=== PATIENT | male | born 1945 | race Caucasian/White ===

== ENCOUNTER 2017-10-20 09:55 | Day surgery (SDC) | payer MEDICARE, OTHER ==
[~2017-10-20 09:55] MED LIST: ACET650SUP PR; BENAML10/2 PO; Benazepril HCl40 MG PO; Cialis5 MG; DESO.25TC TOP; GLUCOSAMINE CH1 EAC1 PO; HYDR1TAB94 PO; LISI20 PO; MED FOR CHOLESTEROL; MED FOR GERD; METO25 PO; METO25ER PO; NAPR250 PO; OMEP20ER PO; PRAV20 PO; Pravachol80 MG PO; SIMV40 PO; TADA10TA; WARF5 PO; [UNRECOGNIZED DRUG - OTHER]; [UNRECOGNIZED DRUG - REMARK]
== END 2017-10-20 22:58 | disposition home or self-care (01) ==
LOC: RAD 09:55
PROVIDERS: Radiology Diagnostic Radiology
PROC: BR29YZZ Computerized Tomography (CT Scan) of Lumbar Spine using Other Contrast (ICD-10-PCS; principal; 2017-10-20 12:30)
DX: M21.372 Foot drop, left foot (principal); M51.36 Other intervertebral disc degeneration, lumbar region; E11.9 Type 2 diabetes mellitus without complications; I10 Essential (primary) hypertension; E78.5 Hyperlipidemia, unspecified; Z87.891 Personal history of nicotine dependence
CPT/HCPCS: 62304; 72132; Q9966

== ENCOUNTER 2018-02-27 10:25 | Emergency (ER) | payer MEDICARE, OTHER ==
[~2018-02-27] VITALS: Ht 177.8 cm; Wt 80.7 kg
[2018-02-27 11:01] LABS: BASOPHILS ABSOLUTE AUTO 0.04 K/mm3 (0.00-0.23); BASOPHILS PERCENT AUTO 1 % (0-2); EOSINOPHILS ABSOLUTE AUTO 0.16 K/mm3 (0.00-0.68); EOSINOPHILS PERCENT AUTO 3 % (0-6); Hematocrit 45.8 % (37.0-53.0); Hemoglobin 16.3 g/dL (13.5-17.5); IMMATURE GRAN ABSOLUTE AUTO 0.01 K/mm3 (0.00-0.10); IMMATURE GRAN PERCENT AUTO 0 % (0-1); LYMPHOCYTES ABSOLUTE AUTO 0.95 K/mm3 (0.84-5.20); LYMPHOCYTES PERCENT AUTO 18 % (21-46); MONOCYTES ABSOLUTE AUTO 0.71 K/mm3 (0.16-1.47); MONOCYTES PERCENT AUTO 14 % (4-13); Mean Corpuscular HGB Conc 35.6 g/dL (31.5-36.5); Mean Corpuscular Volume 101 fL (80-100); Mean Platelet Volume 11.3 fL (9.1-12.4); NEUTROPHILS ABSOLUTE AUTO 3.29 K/mm3 (1.96-9.15); NEUTROPHILS PERCENT AUTO 64 % (41-73); Platelet Count 124 K/mm3 (150-400); RDW Coefficient Variation 12.4 % (11.7-14.2); RDW Standard Deviation 46.5 fL (35.1-46.3); Red Blood Cell Count 4.53 M/mm3 (4.30-5.90); White Blood Cell Count 5.16 K/mm3 (4.00-11.30)
[2018-02-27 11:16] LABS: International Normalized Ratio 1.88; Magnesium, Blood 2.3 mg/dL (1.6-2.4); Prothrombin Time Results 18.7 Sec (9.7-11.5); Troponin I <0.015 ng/mL (0.000-0.040)
[2018-02-27 11:17] LABS: Alanine Aminotransfer (ALT/SGP 38 U/L (12-78); Albumin, Blood 3.7 g/dL (3.4-5.0); Alk Phos 57 U/L (50-136); Anion Gap 7 mmol/L (6-16); Aspartate Aminotrans (AST/SGOT 29 U/L (12-37); Bilirubin, Total 1.1 mg/dL (0.1-1.0); Blood Urea Nitrogen 20 mg/dL (8-24); CO2, Blood 24 mmol/L (21-32); Calcium, Blood 8.7 mg/dL (8.5-10.1); Chloride, Blood 107 mmol/L (98-108); Creatinine, Blood 0.95 mg/dL (0.60-1.20); Globulin, Blood 3.7 g/dL (2.2-4.0); Glomerular Filtration Rate >60 (60-); Glucose, Blood 101 mg/dL (70-99); Potassium, Blood 4.3 mmol/L (3.5-5.5); Sodium, Blood 138 mmol/L (136-145); Total Protein, Blood 7.4 g/dL (6.4-8.2)
== END 2018-02-27 12:05 | disposition home or self-care (01) ==
LOC: ER 10:25
PROVIDERS: Emergency Medicine
DX: R00.2 Palpitations (principal); Z79.899 Other long term (current) drug therapy; Z79.01 Long term (current) use of anticoagulants; E78.5 Hyperlipidemia, unspecified; I48.91 Unspecified atrial fibrillation; Z87.891 Personal history of nicotine dependence; Z85.51 Personal history of malignant neoplasm of bladder
CPT/HCPCS: 36415; 71046; 80053; 83735; 84443; 84484; 85025; 85610; 93005; 93010; 99285-25

== ENCOUNTER 2020-01-02 19:15 | Emergency (ER) | payer MEDICARE ==
[~2020-01-02] VITALS: Ht 177.8 cm; Wt 82.5 kg
[2020-01-02 20:08] LABS: BASOPHILS ABSOLUTE AUTO 0.07 K/mm3 (0.00-0.23); BASOPHILS PERCENT AUTO 1 % (0-2); EOSINOPHILS ABSOLUTE AUTO 0.26 K/mm3 (0.00-0.68); EOSINOPHILS PERCENT AUTO 4 % (0-6); Hematocrit 47.3 % (37.0-53.0); IMMATURE GRAN ABSOLUTE AUTO 0.01 K/mm3 (0.00-0.10); IMMATURE GRAN PERCENT AUTO 0 % (0-1); LYMPHOCYTES ABSOLUTE AUTO 1.25 K/mm3 (0.84-5.20); LYMPHOCYTES PERCENT AUTO 18 % (21-46); MONOCYTES ABSOLUTE AUTO 0.74 K/mm3 (0.16-1.47); MONOCYTES PERCENT AUTO 11 % (4-13); Mean Corpuscular HGB 34.8 pg (26.0-34.0); Mean Corpuscular HGB Conc 35.9 g/dL (31.5-36.5); Mean Corpuscular Volume 97 fL (80-100); Mean Platelet Volume 11.8 fL (9.1-12.4); NEUTROPHILS ABSOLUTE AUTO 4.45 K/mm3 (1.96-9.15); NEUTROPHILS PERCENT AUTO 66 % (41-73); Platelet Count 126 K/mm3 (150-400); RDW Coefficient Variation 12.9 % (11.7-14.2); RDW Standard Deviation 45.3 fL (35.1-46.3); Red Blood Cell Count 4.88 M/mm3 (4.30-5.90); White Blood Cell Count 6.78 K/mm3 (4.00-11.30)
[2020-01-02] MEDS ORDERED: EUTHYROX50 MCG PO (20:18)
[2020-01-02 20:29] LABS: Alanine Aminotransfer (ALT/SGP 34 U/L (12-78); Albumin, Blood 3.7 g/dL (3.4-5.0); Alk Phos 66 U/L (50-136); Anion Gap 5 mmol/L (6-16); Aspartate Aminotrans (AST/SGOT 32 U/L (12-37); Bilirubin, Total 0.7 mg/dL (0.1-1.0); Blood Urea Nitrogen 16 mg/dL (8-24); Bun/Creatinine Ratio 17.1 (12.0-20.0); CO2, Blood 25 mmol/L (21-32); Calcium, Blood 8.7 mg/dL (8.5-10.1); Chloride, Blood 110 mmol/L (98-108); Creatinine, Blood 0.94 mg/dL (0.60-1.20); Globulin, Blood 3.6 g/dL (2.2-4.0); Glomerular Filtration Rate >60 (60-); Glucose, Blood 130 mg/dL (70-99); Sodium, Blood 140 mmol/L (136-145); Total Protein, Blood 7.3 g/dL (6.4-8.2); Troponin I <0.015 ng/mL (0.000-0.040)
[2020-01-02 20:30] LABS: International Normalized Ratio 2.53; Prothrombin Time Results 25.7 Sec (9.7-11.5)
== END 2020-01-02 22:35 | disposition home or self-care (01) ==
LOC: ER 19:15
PROVIDERS: Emergency Medicine
DX: I48.92 Unspecified atrial flutter (principal); M26.609 Unspecified temporomandibular joint disorder, unspecified side; Z79.01 Long term (current) use of anticoagulants; Z79.899 Other long term (current) drug therapy; I10 Essential (primary) hypertension; I48.91 Unspecified atrial fibrillation; Z87.891 Personal history of nicotine dependence
CPT/HCPCS: 12011; 36415; 71046; 80053; 83690; 83880; 84484; 85025; 85610; 90471; 93005; 93010; 99284-25

== ENCOUNTER 2020-09-06 08:40 | Day surgery (SDC) | payer MEDICARE ==
[~2020-09-06] VITALS: Ht 175.3 cm; Wt 83.3 kg
[~2020-09-06 08:40] MED LIST changes: +EUTHYROX50 MCG PO
[2020-09-06] MEDS ORDERED: ASPI81CH (09:01)
== END 2020-09-06 10:36 | disposition home or self-care (01) ==
LOC: ORSCSDS 08:40
PROVIDERS: Internal Medicine Gastroenterology
PROC: 0DBM8ZX Excision of Descending Colon, Via Natural or Artificial Opening Endoscopic, Diagnostic (ICD-10-PCS; principal; 2020-09-06 10:00)
PROC: 0DBK8ZX Excision of Ascending Colon, Via Natural or Artificial Opening Endoscopic, Diagnostic (ICD-10-PCS; principal; 2020-09-06 10:00)
DX: Z12.11 Encounter for screening for malignant neoplasm of colon (principal); Z86.010 Personal history of colon polyps; K57.30 Diverticulosis of large intestine without perforation or abscess without bleeding; Z95.0 Presence of cardiac pacemaker; K64.8 Other hemorrhoids; I48.91 Unspecified atrial fibrillation; K21.9 Gastro-esophageal reflux disease without esophagitis; Z87.891 Personal history of nicotine dependence; Z79.01 Long term (current) use of anticoagulants; Z79.899 Other long term (current) drug therapy
CPT/HCPCS: 88305; J2704; J7120

== ENCOUNTER → 2021-05-14 | Outpatient (CLI) | payer MEDICARE ==
[~2021-05-14] MED LIST changes: +ASPI81CH
== END | disposition home or self-care (01) ==
LOC: LAB SHORT 11:24 → LAB 11:24
DX: D48.5 Neoplasm of uncertain behavior of skin (principal)
CPT/HCPCS: 88305

== ENCOUNTER 2021-06-21 08:53 | Emergency (ER) | payer MEDICARE ==
[~2021-06-21] VITALS: Ht 180.3 cm; Wt 88.5 kg
[2021-06-21 10:45] LABS: Prothrombin Time Results 47.9 Sec (9.7-11.5)
[2021-06-21 10:48] LABS: International Normalized Ratio 5.07
== END 2021-06-21 11:19 | disposition home or self-care (01) ==
LOC: ER 08:53
PROVIDERS: Physician Assistant
DX: S31.821A Laceration without foreign body of left buttock, initial encounter (principal); S00.31XA Abrasion of nose, initial encounter; R79.0 Abnormal level of blood mineral; I48.91 Unspecified atrial fibrillation; E78.5 Hyperlipidemia, unspecified; Z87.891 Personal history of nicotine dependence; Z85.51 Personal history of malignant neoplasm of bladder; Z79.82 Long term (current) use of aspirin; Z79.899 Other long term (current) drug therapy; W18.30XA Fall on same level, unspecified, initial encounter
CPT/HCPCS: 36415; 70450; 72100; 85610; 99284-25

== ENCOUNTER 2021-10-26 17:18 | Emergency (ER) | payer MEDICARE ==
[~2021-10-26] VITALS: Ht 177.8 cm; Wt 83.9 kg
== END 2021-10-26 18:38 | disposition home or self-care (01) ==
LOC: ER 17:18
DX: S05.11XA Contusion of eyeball and orbital tissues, right eye, initial encounter (principal); I48.91 Unspecified atrial fibrillation; Z87.891 Personal history of nicotine dependence; Z79.899 Other long term (current) drug therapy; W22.8XXA Striking against or struck by other objects, initial encounter
CPT/HCPCS: 99283; A9270

== ENCOUNTER 2022-08-06 10:25 | Observation (INO) | payer MEDICARE ==
[~2022-08-06] VITALS: Ht 177.8 cm; Wt 86.7 kg
[~2022-08-06 10:25] MED LIST changes: +BENA20 PO; -Benazepril HCl40 MG PO; -Cialis5 MG; +Cialis5 MG PO
[2022-08-06] MEDS ORDERED: SYNTHROID25 M12 PO (10:46)
[2022-08-06] MEDS ORDERED: METO50ER PO (10:47)
[2022-08-06] MEDS ORDERED: VENLAFAXINE HCL75 MG PO (10:48)
[2022-08-06] MEDS ORDERED: Ventolin/Prove6.7 GM INH (10:49)
[2022-08-06] MEDS ORDERED: ELIQUIS5 M3 PO (10:49)
[2022-08-06] MEDS ORDERED: TAMSULOSIN HCL0.4 M1 PO (10:50)
[2022-08-06] MEDS ORDERED: ALLO300 PO (10:51)
[2022-08-06 10:57] LABS: BASOPHILS ABSOLUTE AUTO 0.03 K/mm3 (0.00-0.23); BASOPHILS PERCENT AUTO 0 % (0-2); EOSINOPHILS ABSOLUTE AUTO 0.02 K/mm3 (0.00-0.68); EOSINOPHILS PERCENT AUTO 0 % (0-6); Hematocrit 45.1 % (37.0-53.0); Hemoglobin 16.2 g/dL (13.5-17.5); IMMATURE GRAN ABSOLUTE AUTO 0.05 K/mm3 (0.00-0.10); IMMATURE GRAN PERCENT AUTO 1 % (0-1); LYMPHOCYTES ABSOLUTE AUTO 0.73 K/mm3 (0.84-5.20); LYMPHOCYTES PERCENT AUTO 8 % (21-46); MONOCYTES PERCENT AUTO 4 % (4-13); Mean Corpuscular HGB 35.1 pg (26.0-34.0); Mean Corpuscular HGB Conc 35.9 g/dL (31.5-36.5); Mean Corpuscular Volume 98 fL (80-100); Mean Platelet Volume 11.6 fL (9.1-12.4); NEUTROPHILS ABSOLUTE AUTO 8.31 K/mm3 (1.96-9.15); NEUTROPHILS PERCENT AUTO 87 % (41-73); Platelet Count 141 K/mm3 (150-400); RDW Standard Deviation 45.3 fL (35.1-46.3); Red Blood Cell Count 4.62 M/mm3 (4.30-5.90); White Blood Cell Count 9.54 K/mm3 (4.00-11.30)
[2022-08-06 11:11] LABS: Albumin, Blood 3.4 g/dL (3.4-5.0); Albumin/Globulin Ratio 1.1 (0.8-1.8); Bilirubin, Total 0.7 mg/dL (0.1-1.0); Bun/Creatinine Ratio 24.8 (12.0-20.0); Creatinine, Blood 0.73 mg/dL (0.60-1.20); Globulin, Blood 3.1 g/dL (2.2-4.0); Total Protein, Blood 6.5 g/dL (6.4-8.2)
[2022-08-06 11:13] LABS: International Normalized Ratio 1.19; Prothrombin Time Results 12.4 Sec (9.7-11.5)
[2022-08-06] MEDS ORDERED: LATA.005SO BOTHEYES (15:45)
[2022-08-06] MEDS ORDERED: ROSUVASTATIN CA20 MG PO (15:45)
--- NOTE | 2022-08-06 17:51 | NUR ---
SHIFT SUMMARY PT UP FROM ED TO ROOM. PT ON RA, SBA TO BED. PT ALERT AND ORIENTED, CALLS APPROPRIATELY. PT ON RA, CONTINENT. NO RESIDUALS NOTED, EQUAL STRENGTH TO BOTH SIDES OF EXTREMITIES, NOTED HX OF FOOT DROP TO LEFT FOOT. ECHO AND CAROTID COMPLETED, PENDING RESULTS. NO C/O PAIN. WILL CONTINUE TO MONITOR. CALL LIGHT WITHIN REACH.
--- NOTE | 2022-08-07 05:35 | NUR ---
SHIFT SUMMARY PT A&O X 4, PT SLEPT T/O NIGHT - PT DENIED PAIN/SOB- PT INDEPENDENT IN ROOM - BED LOW POSITION, CALL LIGHT WITHIN REACH- ROUNDING PER PROTOCOL- NEURO CHECKS BACK TO BASELINE
--- NOTE | 2022-08-07 08:09 | NUR ---
ELEVATED BP: ELEVATED BP THIS AM (195/92 WITH HR OF 70). PATIENT DENIES PAIN OR DISCOMFORT. NO NEURO DEFICITS NOTED. PATIENT DENIES NUMBNESS/TINGLING, CHEST PAIN, SHORTNESS OF BREATH. PATIENT RESTING IN BED. NO SIGNS OR SYMPTOMS OF DISTRESS NOTED. MORNING BP MEDICATIONS GIVEN TO PATIENT. RECHECK WILL BE COMPLETED WITHIN THE HOUR.
--- NOTE | 2022-08-07 08:56 | NUR ---
BP RECHECK AND ECG: POST MORNING BP MEDICATIONS BLOOD PRESSURE RECHECK WAS 126/98 WITH HR OF 65. PATIENT CONTINUES TO DENY CHEST PAIN, DISCOMFORT, NUMBNESS TINGLING, NAUSEA OR SHORTNESS OF BREATH. PATIENT RESTING CALMLY IN BED. NO SIGNS OR SYMPTOMS OF DISTRESS. NO CHANGES TO NEURO ASSESSMENT. ECG COMPLETED. MESSAGE WITH RESULTS LEFT FOR DR. RAHMAN.
[2022-08-07] MEDS ORDERED: ASPI81CH PO (10:12)
--- NOTE | 2022-08-07 14:44 | NUR ---
DISCHARGE SUMMARY: PATIENT DENIED PAIN OR DISCOMFORT THROUGHOUT THE SHIFT. NO NEURO DEFICITS NOTED OTHER THAN PRE-EXISTING CONDITIONS (FOOT DROP OF LEFT FOOT AND HARD OF HEARING). PATIENT INDEPENDENT IN THE ROOM. PATIENT ALERT AND ORIENTED X4. STRENGTH EQUAL ACROSS EXTREMITIES. NO FACIAL DROOP OR DIFFICULTY WITH SPEECH OR WORD FINDING NOTED. PATIENT EXPERIENCED ELEVATED BLOOD PRESSURE THIS MORNING (SEE NOTES). THIS RESOLVED WITH SCHEDULED MEDICATIONS. NO SIGNS OR SYMPTOMS PRESENT. ENCOURAGED PATIENT TO CONTINUE TO MONITOR HIS BLOOD PRESSURE AT HOME. PATIENT ALSO REPORTED THAT HE ALREADY HAS A FOLLOW-UP APPOINTMENT AND THAT HE WILL LOOK INTO HIS YEARLY APPPOINTMENT WITH DR. ORNELAS. PATIENT READY FOR DISCHARGE PER ORDERS. [facility]. DISCHARGE EDUCATION AND INSTRUCTIONS PROVIDED. ALL QUESTIONS AND CONCERNS ADDRESSED. PATIENT DISCHARGED IN WHEELCHAIR WITH [facility] [facility] AND HIS . PATIENT STABLE AT TIME OF DISCHARGE.
== END 2022-08-07 14:13 | disposition home or self-care (01) ==
LOC: ER 10:25 → MEDS 10:26
PROVIDERS: Family Medicine; Physician Assistant; ADMIT Internal Medicine
DX: G45.9 Transient cerebral ischemic attack, unspecified (principal); I35.0 Nonrheumatic aortic (valve) stenosis; I51.7 Cardiomegaly; I48.91 Unspecified atrial fibrillation; I10 Essential (primary) hypertension; E78.5 Hyperlipidemia, unspecified; E03.9 Hypothyroidism, unspecified; K21.9 Gastro-esophageal reflux disease without esophagitis; M10.9 Gout, unspecified; Z79.01 Long term (current) use of anticoagulants; Z87.891 Personal history of nicotine dependence; Z79.899 Other long term (current) drug therapy
CPT/HCPCS: 36415; 70450; 80053; 83036; 83690; 84484; 85025; 85610; 85730; 93005; 93010; 93306; 93880; 99285-25; A9270; C9113; G0378

== ENCOUNTER 2022-08-22 08:01 | Day surgery (SDC) | payer MEDICARE ==
[~2022-08-22] VITALS: Ht 177.8 cm; Wt 86.0 kg
[~2022-08-22 08:01] MED LIST changes: +ALLO300 PO; +ASPI81CH PO; +ELIQUIS5 M3 PO; +LATA.005SO BOTHEYES; +METO50ER PO; +ROSUVASTATIN CA20 MG PO; +SYNTHROID25 M12 PO; +TAMSULOSIN HCL0.4 M1 PO; +VENLAFAXINE HCL75 MG PO; +Ventolin/Prove6.7 GM INH
--- NOTE | 2022-08-22 10:44 | NUR ---
PATIENT RETURNED FROM THE AUDIO VISUAL DIRECTOR VIA BED, PLACED ON THE MONITOR AND CALL LIGHT IN REACH. VVS. SLEEPY BUT RESPONDS APPROPRIATELY. SIDE RAILS UP X 2. TR BAND IN PLACE TO THE RIGHT RADIAL WITH 11 ML OF AIR IN THE BAND. SBAR RECEIVED FROM WILLARD GRANADOS AND SALENA RT. ORDERS NOTED FROM DR. CARROLL.
--- NOTE | 2022-08-22 11:17 | NUR ---
TO THE BEDSIDE AND DR. SAEZ AT THE BEDSIDE AND SPOKE TO REGARDING RESULTS OF CATH. ALL QUESTIONS ANSWERED.
--- NOTE | 2022-08-22 12:27 | NUR ---
TR BAND FLAT, ALL AIR REMOVED. NO BLEEDING NOTED. NO HEMATOMA
--- NOTE | 2022-08-22 13:06 | NUR ---
PATEINT UP OFF THE MONITOR TO THE RESTRROM. BACK TO THE BEDSIDE AND DRESSING. REVIEWED DISCHARGE INSTRUCTIONS. REMOVED PIV FROMTEH LEFT AC AND PRESSURE DRESSING APPLIED. TR BAND REMOVED AND SITE CLEAND CLOTH DOT PLACED AND WHITE BOARD REPLACED TO THE RIGHT WRIST. REVIEWED INSTRUCTIONSFOR POTENTIONAL BLEEDING OF THE WRIST WHEN ARRIVED AND FOLLOW UP APPOINTMENT. DISCHARGED HOME WITH ALL BELONGINGS.
== END 2022-08-22 14:14 | disposition home or self-care (01) ==
LOC: MHTC 08:01
DX: Z01.810 Encounter for preprocedural cardiovascular examination (principal); I35.0 Nonrheumatic aortic (valve) stenosis; I25.10 Atherosclerotic heart disease of native coronary artery without angina pectoris; I25.84 Coronary atherosclerosis due to calcified coronary lesion; I48.19 Other persistent atrial fibrillation; I10 Essential (primary) hypertension; E78.5 Hyperlipidemia, unspecified; Z95.0 Presence of cardiac pacemaker; I69.954 Hemiplegia and hemiparesis following unspecified cerebrovascular disease affecting left non-dominant side; Z79.82 Long term (current) use of aspirin; Z79.01 Long term (current) use of anticoagulants; Z79.899 Other long term (current) drug therapy
CPT/HCPCS: 76937; 93454; 99152; 99153; C1769; C1887; C1894; J1644; J2250; J3010; J7030; J7050; Q9967

== ENCOUNTER 2023-01-01 10:30 | Day surgery (SDC) | payer MEDICARE ==
[~2023-01-01] VITALS: Ht 177.8 cm; Wt 88.9 kg
[~2023-01-01 10:30] MED LIST changes: +ATROVENT HFA12.9 GM; +B-12500 MC2 PO; +COLCHICINE0.6 MG PO; +DABI150C; +DULO60 PO; +LEVSOD25 PO
[2023-01-01] MEDS ORDERED: Acetaminophen650 M1 PO (11:08)
[2023-01-01] MEDS ORDERED: SUPER B COMPLEX (11:10)
[2023-01-01 11:12] VITALS: BP 163/93
[2023-01-01 14:34] VITALS: BP 153/94
--- NOTE | 2023-01-01 14:35 | NUR ---
PT BACK TO RECOVERY ROOM VIA BED AFTER PROCEDURE. AWAKE AND ALERT, DENIES ANY PAIN OR DISCOMFORT. VSS, CALL LIGHT IN REACH. LEFT CHEST WITH MEDIPORE DRESSINGS IN PLACE.
--- NOTE | 2023-01-01 15:11 | NUR ---
PT SITTING UP IN BED, EATING LUNCH. AT BEDSIDE. VSS, LEFT CHEST SITE CLEAN, DRY, INTACT.
[2023-01-01 15:39] VITALS: BP 148/85
--- NOTE | 2023-01-01 16:00 | NUR ---
IV DC'D, CATH INTACT. PT AND SPOUSE GIVEN DC INSTRUCTIONS AND FOLLOW UP INFO, VERBALIZED UNDERSTANDING. PT OUT TO CAR VIA WHEELCHAIR, IS DRIVING PT HOME.
== END 2023-01-01 23:19 | disposition home or self-care (01) ==
LOC: MHTC 10:30
DX: Z45.010 Encounter for checking and testing of cardiac pacemaker pulse generator [battery] (principal); I35.0 Nonrheumatic aortic (valve) stenosis; I25.10 Atherosclerotic heart disease of native coronary artery without angina pectoris; I48.19 Other persistent atrial fibrillation; I10 Essential (primary) hypertension; E78.5 Hyperlipidemia, unspecified; Z95.2 Presence of prosthetic heart valve; Z87.891 Personal history of nicotine dependence; Z79.899 Other long term (current) drug therapy
CPT/HCPCS: 33228; 99152; 99153; C1785; J0690; J1644; J2250; J3010; J7030; J7040

== ENCOUNTER → 2024-08-11 | Outpatient (CLI) | payer MEDICARE ==
[~2024-08-11] MED LIST changes: +Acetaminophen650 M1 PO; +SUPER B COMPLEX
[2024-08-12 15:41] LABS: Adenovirus F 40/41 Not Detected (NOT DETECT); Astrovirus Not Detected (NOT DETECT); Campylobacter Sp Not Detected (NOT DETECT); Cryptosporidium Not Detected (NOT DETECT); Cyclospora Cayetanensis Not Detected (NOT DETECT); E. Coli O157 Not Detected (NOT DETECT); Entamoeba Histolytica Not Detected (NOT DETECT); Enteroaggregative E. coli-EAEC Not Detected (NOT DETECT); Enteropathogenic E. coli-EPEC Not Detected (NOT DETECT); Enterotoxigenic E. coli-ETEC Not Detected (NOT DETECT); Giardia Lamblia Not Detected (NOT DETECT); Norovirus GI/GII Not Detected (NOT DETECT); Plesiomonas Shigelloides Not Detected (NOT DETECT); Rotavirus A Not Detected (NOT DETECT); Salmonella Sp Not Detected (NOT DETECT); Sapovirus Not Detected (NOT DETECT); Shiga Toxin-prod E. coli-STEC Not Detected (NOT DETECT); Shigella/Enteroin E. coli-EIEC Not Detected (NOT DETECT); Vibrio Cholerae Not Detected (NOT DETECT); Vibrio Sp Not Detected (NOT DETECT); Yersinia Enterocolitica Not Detected (NOT DETECT)
== END | disposition home or self-care (01) ==
LOC: LAB 07:20 → LAB SHORT 07:20 → LAB FUT 08-11 15:55
PROVIDERS: Family Medicine
DX: R19.7 Diarrhea, unspecified (principal)
CPT/HCPCS: 87507

== ENCOUNTER 2025-04-27 08:19 | Day surgery (SDC) | payer MEDICARE ==
[~2025-04-27] VITALS: Ht 175.3 cm; Wt 88.1 kg
[~2025-04-27 08:19] MED LIST changes: +Aspir 8181 MG PO; +Balanced Salt Epinephrine Irrigation Solution 500 mL IR SCH; +Moxifloxacin HCL 0.5 MG/0.1 ML 0.4MLSYR RIGHTEYE SCH; +Ondansetron 4 MG SoluTab MM PRN; +PHENYLEPHRINE\\TROPICAMIDE\\TETRACAINE OPHTHALMIC DILATING SOLN RIGHTEYE PRN; +Povidone-Iodine 450 DROP/30 ML Solution ONE; +Povidone-Iodine 450 DROP/30 ML Solution RIGHTEYE SCH; +Tetracaine HCl/Pf 0.5% Opth Soln 4 ml ONE
--- NOTE | 2025-04-27 09:05 | NUR ---
[facility]/25 [facility]05 [facility] INITIAL ANXIETY 0/10 PER PATIENT REPORT. 10 MG PO VALIUM GIVEN PER ORDERS. CALL LIGHT IN REACH. PULSE OX ON FINGER.
[2025-04-27] MEDS ORDERED: ACET500 PO (09:08)
[2025-04-27] MEDS ORDERED: COLCHICINE0.6 MG PO (09:10)
[2025-04-27] MEDS ORDERED: COSAMIN DS (09:11)
--- NOTE | 2025-04-27 09:33 | NUR ---
04/27/25 0933 Bryanna Brito 0931 BP:153/90 HR:75 O2:96% RESP:16
[2025-04-27 10:02] VITALS: BP 147/88
== END 2025-04-27 10:23 | disposition home or self-care (01) ==
LOC: ORSCSDS 08:19
PROVIDERS: Student in an Organized Health Care Education/Training Program
PROC: 08RJ3JZ Replacement of Right Lens with Synthetic Substitute, Percutaneous Approach (ICD-10-PCS; principal; 2025-04-27 10:00)
DX: E11.36 Type 2 diabetes mellitus with diabetic cataract (principal); H25.813 Combined forms of age-related cataract, bilateral; H52.201 Unspecified astigmatism, right eye; H21.81 Floppy iris syndrome; H40.1231 Low-tension glaucoma, bilateral, mild stage; I25.10 Atherosclerotic heart disease of native coronary artery without angina pectoris; Z95.0 Presence of cardiac pacemaker; I10 Essential (primary) hypertension; Z87.891 Personal history of nicotine dependence; N40.0 Benign prostatic hyperplasia without lower urinary tract symptoms; K21.9 Gastro-esophageal reflux disease without esophagitis; I49.5 Sick sinus syndrome; I48.0 Paroxysmal atrial fibrillation; E78.00 Pure hypercholesterolemia, unspecified; Z79.82 Long term (current) use of aspirin; Z79.899 Other long term (current) drug therapy
CPT/HCPCS: A9270; V2632

== ENCOUNTER 2025-05-03 09:50 | Day surgery (SDC) | payer MEDICARE ==
[~2025-05-03] VITALS: Ht 175.3 cm; Wt 88.3 kg
[~2025-05-03 09:50] MED LIST changes: +ACET500 PO; +COSAMIN DS; +Moxifloxacin HCL 0.5 MG/0.1 ML 0.4MLSYR LEFTEYE SCH; -Moxifloxacin HCL 0.5 MG/0.1 ML 0.4MLSYR RIGHTEYE SCH; +PHENYLEPHRINE\\TROPICAMIDE\\TETRACAINE OPHTHALMIC DILATING SOLN LEFTEYE PRN; -PHENYLEPHRINE\\TROPICAMIDE\\TETRACAINE OPHTHALMIC DILATING SOLN RIGHTEYE PRN; +Povidone-Iodine 450 DROP/30 ML Solution LEFTEYE SCH; -Povidone-Iodine 450 DROP/30 ML Solution RIGHTEYE SCH
--- NOTE | 2025-05-03 11:02 | NUR ---
05/03/25 1102 Jefferson Rodriguez CALL LIGHT WITHIN REACH. EYE DROPS IN AROUND 1057. PT ON CONTINOUS PULSE OXIMETER FOR CLOSE MONITORING
--- NOTE | 2025-05-03 11:48 | NUR ---
05/03/25 1148 Hao Mansfield BP 177/107, HR 72, O2 98% W/ BLOWBY AT 10L.
[2025-05-03 12:13] VITALS: BP 173/103
== END 2025-05-03 12:16 | disposition home or self-care (01) ==
LOC: ORSCSDS 09:50
PROVIDERS: Student in an Organized Health Care Education/Training Program
PROC: 08RK3JZ Replacement of Left Lens with Synthetic Substitute, Percutaneous Approach (ICD-10-PCS; principal; 2025-05-03 11:30)
DX: E11.36 Type 2 diabetes mellitus with diabetic cataract (principal); H25.812 Combined forms of age-related cataract, left eye; H52.202 Unspecified astigmatism, left eye; Z96.1 Presence of intraocular lens; H40.1230 Low-tension glaucoma, bilateral, stage unspecified; I48.0 Paroxysmal atrial fibrillation; I10 Essential (primary) hypertension; Z95.0 Presence of cardiac pacemaker; N40.0 Benign prostatic hyperplasia without lower urinary tract symptoms; I49.5 Sick sinus syndrome; E78.00 Pure hypercholesterolemia, unspecified; Z79.82 Long term (current) use of aspirin; Z79.899 Other long term (current) drug therapy; Z87.891 Personal history of nicotine dependence
CPT/HCPCS: A9270; V2632